=== PATIENT | female | born 1985 | race Caucasian/White ===

== ENCOUNTER 2018-10-07 18:24 | Emergency (ER) | payer BC ==
[~2018-10-07] VITALS: Ht 167.6 cm; Wt 77.1 kg
[~2018-10-07 18:24] MED LIST: POLY17PO6 PO
[2018-10-07 18:38] VITALS: Ht 167.6 cm; Wt 77.1 kg
[2018-10-07] MEDS ORDERED: LIDOCAINE 1%/EPI 30 ML INJ INJ STA (19:40)
--- NOTE | 2018-10-07 19:41 | ERD ---
ER Documentation Chief Complaint Chief Complaint laceration to R hand from glass dish HPI 33-year-old female, right-handed, presents the emergency department, complaining of a laceration of the right hand that occurred approximately 1 hour prior to arrival while the patient was washing the dishes and one glass got broken. The pain is sharp, constant, 8/10. She denies distal weakness, numbness or tingling. ROS All systems reviewed and are negative except as per history of present illness. Medications Home Meds Active Scripts Ibuprofen* (Motrin*) 400 Mg Tab, 400 MG PO Q6H PRN for PAIN AND OR ELEVATED TEMP, #20 TAB Prov:CADY BAUM MD 10/07/18 Acetaminophen* (Tylenol*) 325 Mg Tablet, 2 TAB PO Q6 PRN for PAIN AND OR ELEVATED TEMP, #20 TAB Prov:CADY BAUM MD 10/07/18 Polyethylene Glycol* (Miralax*) 17 Gm Powd.pack, 17 GM PO DAILY for 3 Days Prov:JONNY MCCAIN PA-C 02/16/15 Allergies Allergies: Coded Allergies: Penicillins (Verified Allergy, Unknown, HIVES, 02/16/15) amoxicillin (Verified Allergy, Unknown, 02/16/15) PMhx/Soc Medical and Surgical Hx: pt denies Medical Hx, pt denies Surgical Hx History of Surgery: No Anesthesia Reaction: No Hx Neurological Disorder: No Hx Respiratory Disorders: No Hx Cardiac Disorders: No Hx Psychiatric Problems: No Hx Miscellaneous Medical Probl: Yes (RECENT UTI) Hx Alcohol Use: No Hx Substance Use: No Hx Tobacco Use: No Smoking Status: Never smoker FmHx Family History: No diabetes, No coronary disease Physical Exam Vitals Vital Signs Date Temp Pulse Resp B/P (MAP) Pulse Ox O2 O2 Flow FiO2 Time Delivery Rate 10/07/18 98.2 68 20 129/59 99 Room Air 21:28 (82) 10/07/18 98.1 71 16 125/64 99 18:38 (84) Physical Exam Const: No acute distress Head: Atraumatic Eyes: Normal Conjunctiva ENT: Normal External Ears, Nose and Mouth. Neck: Full range of motion. No meningismus. Resp: Clear to auscultation bilaterally Cardio: Regular rate and rhythm, no murmurs Abd: Soft, non tender, non distended. Normal bowel sounds Skin: No petechiae or rashes Back: No midline or flank tenderness Ext: Right hand: 2 cm linear laceration at the first metacarpal area, no foreign body seen, distal neurovascular exam intact, no cyanosis, or edema Neur: Awake and alert Psych: Normal Mood and Affect Results 24 hrs Current Medications Medications Dose Sig/Ghazala Start Time Status Last (Trade) Ordered Route PRN Stop Time Admin Dose Reason Admin Lidocaine/ 30 ml ONCE STAT 10/07/18 DC Epinephrine INJ 19:40 10/07/18 (Xylocaine 19:43 1%/ Epi (Pf)) Diphtheria/ 0.5 ml ONCE ONCE 10/07/18 DC 10/07/18 Tetanus/Acell IM* 20:00 10/07/18 20:20 Pertussis 20:01 (Adacel) Procedures/MDM Vital signs stable, the patient was evaluated for foreign body, open fracture, nerve/vascular/tendon injury. Neurovascular exam intact. Procedure: Laceration repair The procedure was explained and consent obtained. Anesthesia: 1% lidocaine [with] epinephrine locally Location: Right hand Tendon/Joint/Nerves: No injury Foreign body: None detected after copious irrigation and exploration Technique: Simple Interrupted Sutures Complexity: No subcutaneous sutures/mucosal repair/ edge excision Post Closure Length: 2 cm The patient tolerated the procedure well without complications. clinical impr ession and possible complications like infection and a scar where discussed with the patient who agreed with management. The patient is stable to be treated outpatient and will be discharged home,some side effects of prescribed medications (headache, rash, nausea, vomiting, diarrhea, interactions with other medications) were reviewed. The patient was instructed to follow up with the primary care provider in the next 48h for wound check. If symptoms persist, worsen or new symptoms develop, then patient should return to the ED immediately. Instructions explained and given directly by me to the patient with acknowledgment and demonstrated understanding. Disclaimer: Inadvertent spelling and grammatical errors are likely due to EHR/dictation software use and do not reflect on the overall quality of patient care. Also, please note that the electronic time recorded on this note does not necessarily reflect the actual time of the patient encounter. Departure Diagnosis: Primary Impression: Laceration of right hand Condition: Stable Additional Instructions: Thank you very much for allowing us to participate in your care. Your health and safety is our top priority at [facility]. The evaluation in the emergency department has been done to rule out an acute emergency, therefore, chronic conditions like malignancy or other diseases have not been evaluated; therefore, you need to follow up with a primary care provider in the next 48h. If symptoms persist, worsen or new symptoms develop, then patient should return to the ED immediately. Call your primary care doctor TOMORROW for an appointment during the next 2-4 days and bring all the information provided. Have prescriptions filled and follow precisely the directions on the label. If the symptoms get worse and your provider is unavailable, return to the Emergency Department immediately. CADY BAUM MD October 07, 2018 19:41
[2018-10-07] MEDS ORDERED: DIPHTH/TET/ACEL PERTUSS (ADULT) 0.5 ML VIAL IM* ONE (20:00)
[2018-10-07] MEDS ORDERED: ACET325T33 PO (21:05)
[2018-10-07] MEDS ORDERED: IBUP-1561 PO (21:05)
[2018-10-07 21:28] VITALS: BP 129/59; PULSE 68; RESP 20
== END 2018-10-07 21:29 | disposition home or self-care (01) ==
LOC: FTE 18:24
DX: S61.411A Laceration without foreign body of right hand, initial encounter (principal); W25.XXXA Contact with sharp glass, initial encounter; Y92.9 Unspecified place or not applicable; Z23 Encounter for immunization
CPT/HCPCS: 90471; 90715